=== PATIENT | female | born 1970 | race Hispanic/Latino ===

== ENCOUNTER 2016-07-04 23:00 | Emergency (ER) | payer OTHER ==
[2016-07-04 23:29] VITALS: O2SAT 100
--- NOTE | 2016-07-04 23:52 | ED.PDOC ---
History of Present Illness - General Chief Complaint: Behavioral / Psych Stated Complaint: increased anxiety Time Seen by Provider: 07/04/16 23:12 Source: patient, RN notes reviewed, Vital Signs reviewed, family Exam Limitations: no limitations - History of Present Illness Initial Comments: Patient is a 46 y/o female with known psychiatric problems. She complains of anxiety, nausea, vomiting, chest tightness, and abdominal pain x 30 minutes. Patient informed the nurse (but not myself) that she has been out of her medications for 3 days and won't be able to get it until tomorrow. She has vomited twice today. Timing/Duration: this evening Severity: severe Episode Description: Anxious, nausea, vomiting, chest tightness Allergies/Adverse Reactions: Allergies Penicillins Allergy (Severe, Verified 07/04/16 23:12) Anaphylaxis Home Medications: Ambulatory Orders Clonazepam [Klonopin] 2 mg PO BID 12/01/14 Lurasidone HCl [Latuda] 120 mg PO DAILY 12/01/14 Trazodone HCl 300 mg PO BEDTIME 12/01/14 Venlafaxine Xr [Effexor Xr] 1 each PO DAILY 12/01/14 Clonazepam [Klonopin] 2 mg PO BID #1 tab 02/15/15 Insulin Shot 0.6 unit SC DAILY 02/15/15 Sulfa/Trimeth 800/160 (Ds) Tab [Bactrim DS Tab] 1 ea PO BID #14 tab 09/10/15 Review of Systems - Review of Systems Constitutional: States: weakness EENTM: States: no symptoms reported Respiratory: States: short of breath Cardiology: States: chest pain Gastrointestinal/Abdominal: States: nausea, vomiting Genitourinary: States: no symptoms reported Musculoskeletal: States: muscle pain Skin: States: rash Neurological: States: anxiety, emotional problems Endocrine: States: no symptoms reported Hematologic/Lymphatic: States: no symptoms reported All other Systems: Reviewed and Negative Past Medical History (General) - Patient Medical History Hx Seizures: Yes Hx Stroke: No Hx Dementia: No Hx Asthma: No Hx of COPD: No Hx Cardiac Disorders: No Hx Congestive Heart Failure: No Hx Pacemaker: No Hx Hypertension: No Hx Thyroid Disease: No Hx Diabetes: No Hx Gastroesophageal Reflux: No Hx Renal Disease: Yes Hx Cancer: Yes - LIVER Hx of HIV: No Hx Hepatitis C: Yes Hx MRSA: No Surgical History: gastric bypass, Hysterectomy - Vaccination History Hx Tetanus, Diphtheria Vaccination: No Hx Influenza Vaccination: No Hx Pneumococcal Vaccination: No Immunizations Up to Date: No - Social History Hx Tobacco Use: No Hx Chewing Tobacco Use: No Hx Alcohol Use: No Hx Substance Use: No Hx Substance Use Treatment: No Hx Depression: Yes Hx Physical Abuse: No Hx Emotional Abuse: No Hx Suspected Abuse: No - Female History Patient : No Family Medical History - Family History Mother Family History: Unknown Physical Exam - Physical Exam General Appearance: Agitated, Alert, Anxious, Obvious distress, Unkempt Eyes, Ears, Nose, Throat Exam: normal ENT inspection Respiratory: lungs clear, normal breath sounds, no respiratory distress, no accessory muscle use Cardiovascular/Chest: regular rate, rhythm, no edema, no gallop, no murmur Gastrointestinal/Abdominal: normal bowel sounds, non tender, soft, no organomegaly Extremities Exam: non-tender, no edema Neurological: alert, oriented x 3, agitated, anxious Appearance: no memory impairment, disheveled, impaired insight Behavior/Eye Contact/Speech: cooperative, good eye contact, normal speech Thoughts/Hallucinations: normal thought pattern, no apparent hallucination Skin Exam: rash - hyperpigmented macular lesions on face and chest Progress - Progress Progress: 07/05/16 01:16 Patient's lipase was mildly elevated which could be a result of numerous things , including her vomiting or drug use. Patient's symptoms resolved after giving her a regular dose of her Klonopin 2 mg PO. - Results/Orders Results/Orders: 07/04/16 07/05/16 23:15 00:30 Temperature 98.2 F Pulse Rate [ 66 59 L Left] Respiratory 24 24 Rate Blood Pressure 180/90 161/84 [Left Arm] O2 Sat by Pulse 100 100 Oximetry 07/04/16 23:38 Chest,2 Views [RAD] Stat Laboratory Results WBC 11.6 K/mm3 (4.8-10.8) H 07/05/16 00:33 RBC 5.02 M/mm3 (4.20-5.40) 07/05/16 00:33 Hgb 11.0 gm/dL (12.0-16.0) L 07/05/16 00:33 Hct 35.7 % (36.0-47.0) L 07/05/16 00:33 MCV 71.1 fl (81.0-99.0) L 07/05/16 00:33 MCH 21.9 pg (27.0-31.0) L 07/05/16 00:33 MCHC 30.9 g/dL (33.0-37.0) L 07/05/16 00:33 RDW 16.9 % (11.5-14.5) H 07/05/16 00:33 Plt Count 286 K/mm3 (130-400) 07/05/16 00:33 MPV 9.2 fl (7.40-10.4) 07/05/16 00:33 Absolute Neuts (auto) 6.90 K/uL (1.8-6.8) H 07/05/16 00:33 Absolute Lymphs (auto) 3.60 K/uL (1.0-3.4) H 07/05/16 00:33 Absolute Monos (auto) 0.70 K/uL (0.2-0.8) 07/05/16 00:33 Absolute Eos (auto) 0.30 K/uL (0.0-0.4) 07/05/16 00:33 Absolute Basos (auto) 0.10 K/uL (0.0-0.1) 07/05/16 00:33 Neutrophils % 59.6 % (42.0-78.0) 07/05/16 00: Lymphocytes % 31.2 % (20.0-50.0) 07/05/16 00: Monocytes % 5.7 % (2.0-9.0) 07/05/16 00: Eosinophils % 2.6 % (1.0-5.0) 07/05/16 00: Basophils % 0.9 % (0.0-2.0) 07/05/16 00:33 Sodium 138 mmol/L (135-145) 07/05/16 00:33 Potassium 4.1 mmol/L (3.6-5.0) 07/05/16 00:33 Chloride 107 mmol/L (101-111) 07/05/16 00:33 Carbon Dioxide 24 mmol/L (21-31) 07/05/16 00:33 Anion Gap 11.1 (12-18) L 07/05/16 00:33 BUN 15 mg/dL (7-18) 07/05/16 00:33 Creatinine 0.49 mg/dL (0.6-1.3) L 07/05/16 00:33 BUN/Creatinine Ratio 30.6 (10-20) H 07/05/16 00:33 Random Glucose 123 mg/dL (70-105) H 07/05/16 00:33 Serum Osmolality 277.9 mOsm/L (275-295) 07/05/16 00:33 Calcium 8.5 mg/dL (8.4-10.2) 07/05/16 00:33 Total Bilirubin 0.3 mg/dL (0.2-1.0) 07/04/16 23:38 Direct Bilirubin 0.1 mg/dL (0-0.2) 07/04/16 23:38 Indirect Bilirubin 0.2 mg/dL (0.2-0.8) 07/04/16 23:38 AST 21 IU/L (10-42) 07/04/16 23:38 ALT 14 IU/L (10-60) 07/04/16 23:38 Alkaline Phosphatase 133 IU/L (42-121) H 07/04/16 23:38 Serum Total Protein 7.2 gm/dL (6.4-8.2) 07/04/16 23:38 Albumin 3.8 g/dl (3.2-5.5) 07/04/16 23:38 Lipase 90 U/L (22-51) H 07/04/16 23:38 Urine Color Yellow (Yellow) 07/04/16 23:43 Urine Appearance Clear (Clear) 07/04/16 23:43 Urine pH 7.5 (4.5-7.8) 07/04/16 23:43 Ur Specific [place] 1.015 (1.005-1.030) 07/04/16 23:43 Urine Protein Negative mg/dL 07/04/16 23:43 Urine Glucose (UA) Negative mg/dL (Negative) 07/04/16 23:43 Urine Ketones Negative mg/dL (NEGATIVE) 07/04/16 23:43 Urine Blood Negative (Negative) 07/04/16 23:43 Urine Nitrite Negative 07/04/16 23:43 Urine Bilirubin Negative (NEGATIVE) 07/04/16 23:43 Urine Urobilinogen 0.2 mg/dL (0.2-1.0) 07/04/16 23:43 Ur Leukocyte Esterase Negative (Negative) 07/04/16 23:43 Urine RBC 1-3 /hpf 07/04/16 23:43 Urine WBC 0-1 /hpf 07/04/16 23:43 Ur Epithelial Cells 0-1 /hpf 07/04/16 23:43 Urine Bacteria 0 07/04/16 23:43 Urine Opiates Screen Positive ng/mL (2000) H 07/04/16 23:38 Urine Barbiturates Negative ng/mL (200) 07/04/16 23:38 Ur Phencyclidine Scrn Negative ng/mL (25) 07/04/16 23:38 U Amphetamin/Meth Scrn Negative ng/mL (1000) 07/04/16 23:38 U Benzodiazepines Scrn Negative ng/mL (200) 07/04/16 23:38 U Cocaine Metab Screen Negative ng/mL (300) 07/04/16 23:38 U Cannabinoids Screen Positive ng/mL (50) H 07/04/16 23:38 - EKG/XRAY/CT XRAY: chest Xray Comments: No acute process - Additional EKG/XRAY/Consults XRAY #2: abdomen Comments: No acute process Departure - Departure Clinical Impression: Elevated lipase, Drug use Withdrawal from benzodiazepine Qualifiers: Complication of substance-induced condition: uncomplicated Qualifier Code: ( F13.230) Sedative, hypnotic or anxiolytic dependence with withdrawal, uncomplicated Time of Disposition: :24 Disposition: Discharge to Home or Self Care Condition: Good Departure Forms: ED Discharge - Pt. Copy, Patient Portal Self Enrollment Instructions: Drug Withdrawal, DI for Drug Withdrawal Diet: resume usual diet Referrals: [Primary Care Provider] - 1-2 Weeks Home Medications: Ambulatory Orders Clonazepam [Klonopin] 2 mg PO BID 12/01/14 Lurasidone HCl [Latuda] 120 mg PO DAILY 12/01/14 Trazodone HCl 300 mg PO BEDTIME 12/01/14 Venlafaxine Xr [Effexor Xr] 1 each PO DAILY 12/01/14 Clonazepam [Klonopin] 2 mg PO BID #1 tab 02/15/15 Insulin Shot 0.6 unit SC DAILY 02/15/15 Sulfa/Trimeth 800/160 (Ds) Tab [Bactrim DS Tab] 1 ea PO BID #14 tab 09/10/15
--- NOTE | 2016-07-05 00:18 | RAD ---
EXAM DESCRIPTION: Abdomen Flat Upright CLINICAL HISTORY: 46 years Female ,chest pressure, nausea and vomiting, mid right upper abdomen pain COMPARISON: None. TECHNIQUE: Two views of the abdomen. FINDINGS: The visualized lung bases appear clear. No free air is identified beneath the hemidiaphragms. No dilated loops of bowel to suggest obstruction. The ascending colon and hepatic flexure appear distended with stool. Moderate amount of stool in the descending colon. Changes from constipation not excluded. Phleboliths in the pelvis. Degenerative changes in the spine. Cholecystectomy clips in the right upper abdomen. Suture material is visualized in the region of the stomach. IMPRESSION: Stool in the colon which could be from constipation. No definite bowel obstruction. Electronically signed by: Jim Cardenas MD 07/05/2016 12:17 AM [employer] OFFICER
[2016-07-05 01:42] VITALS: BP 136/83; TEMP 98.7
--- NOTE | 2016-07-11 14:09 | RAD ---
EXAM DESCRIPTION: Chest,2 Views CLINICAL HISTORY: chest pressure COMPARISON: April 12, 2016 FINDINGS: Cardiac silhouette is within normal limits. There is no focal parenchymal or pleural disease. There is no acute osseous process visualized. IMPRESSION: No evidence of acute cardiopulmonary disease. Electronically signed by: Cliff Velazquez MD 07/05/2016 12:13 AM SURGICAL SCRUB TECHNICIAN
== END 2016-07-05 01:41 | disposition home or self-care (01) ==
LOC: ER 23:00
DX: F13.230 Sedative, hypnotic or anxiolytic dependence with withdrawal, uncomplicated (principal); R74.8 Abnormal levels of other serum enzymes; R11.2 Nausea with vomiting, unspecified; R07.89 Other chest pain; Z79.899 Other long term (current) drug therapy; Z79.4 Long term (current) use of insulin; Z88.0 Allergy status to penicillin; Z85.05 Personal history of malignant neoplasm of liver; Z98.84 Bariatric surgery status
CPT/HCPCS: 71020; 74010; 80048; 80076; 81001; 83690; 85025; G0479

== ENCOUNTER → 2016-09-09 | Outpatient (CLI) | payer OTHER | END | disposition home or self-care (01) | LOC: YCFC.O 15:07 | PROVIDERS: ATTEND Nurse Practitioner Family | DX: B18.2 Chronic viral hepatitis C (principal); R74.8 Abnormal levels of other serum enzymes; E11.65 Type 2 diabetes mellitus with hyperglycemia; I10 Essential (primary) hypertension; Z13.29 Encounter for screening for other suspected endocrine disorder ==

== ENCOUNTER 2018-03-03 13:14 | Emergency (ER) | payer OTHER ==
[2018-03-03 13:27] VITALS: TEMP 97.6
--- NOTE | 2018-03-03 14:07 | ED.PDOC ---
History of Present Illness - General Chief Complaint: Neuro Symptoms/Deficits Stated Complaint: seizure Time Seen by Provider: 03/03/18 13:27 Source: patient, family Exam Limitations: no limitations - History of Present Illness Initial Comments: PT HAD A WITNESSED GENERILIZED TONIC-CLONIC SEIZURE TODAY. SHE WAS SEATED IN CHAIR AND STEADIED HER SO SHE DID NOT HIT THE GROUND AND REMAINED IN THE CHAIR. POS LOC. NO HEAD OR OTHER TRAUMA. H/O SZ, TAKES TRILEPTAL BID BUT DIDN'T TAKE ANY OF HER MEDS THIS AM. SAW PCP LAST WEEK; NO SZ MED CHANGES. PT REPORTS INCR STRESS TODAY, SHE HAD TO PRESENT TO [facility] FOR SENTENCING. HAS DM AND ACCUCHECK 243. Severity: moderate Improving Factors: nothing Worsening Factors: nothing Associated Symptoms: loss of consciousness, seizures Allergies/Adverse Reactions: Allergies Penicillins Allergy (Severe, Verified 07/04/16 23:12) Anaphylaxis Home Medications: Ambulatory Orders Lurasidone HCl [Latuda] 160 mg PO BEDTIME 12/01/14 Venlafaxine Xr [Effexor Xr] 1 each PO DAILY 12/01/14 Dicyclomine HCl 20 mg PO TID 03/03/18 Hydroxyzine HCl 25 mg PO TID 03/03/18 Lisinopril 20 mg PO DAILY 03/03/18 Metformin HCl 1,000 mg PO DAILY 03/03/18 Omeprazole 20 mg PO DAILY 03/03/18 Oxcarbazepine [Trileptal] 600 mg PO BID 03/03/18 Triamterene & Hydrochlorothiaz [Triamterene/Hydrochloroth 37.5-25 mg] 1 tab PO DAILY 03/03/18 Review of Systems - Review of Systems Constitutional: States: malaise. Denies: chills, fever EENTM: States: no symptoms reported Respiratory: States: no symptoms reported Cardiology: States: no symptoms reported Gastrointestinal/Abdominal: States: no symptoms reported Genitourinary: States: no symptoms reported Musculoskeletal: States: no symptoms reported. Denies: neck pain Skin: States: no symptoms reported Neurological: States: pre-existing deficit, other - GENERALIZED FATIGUE, C/W POST-ICTAL STATE. . Denies: headache Endocrine: States: no symptoms reported Hematologic/Lymphatic: States: no symptoms reported All other Systems: Reviewed and Negative Past Medical History (General) - Patient Medical History Hx Seizures: Yes Hx Stroke: No Hx Dementia: No Hx Asthma: No Hx of COPD: No Hx Cardiac Disorders: No Hx Congestive Heart Failure: No Hx Pacemaker: No Hx Hypertension: Yes Hx Thyroid Disease: No Hx Diabetes: No Hx Gastroesophageal Reflux: No Hx Renal Disease: Yes Hx Cancer: Yes - LIVER Hx of HIV: No Hx Hepatitis C: Yes Hx MRSA: No Surgical History: appendectomy, cholecystectomy, Hysterectomy - Vaccination History Hx Tetanus, Diphtheria Vaccination: No Hx Influenza Vaccination: No Hx Pneumococcal Vaccination: No - Social History Hx Tobacco Use: Yes Hx Chewing Tobacco Use: No Hx Alcohol Use: No Hx Substance Use: No Hx Substance Use Treatment: No Hx Depression: Yes Hx Physical Abuse: No Hx Emotional Abuse: No Hx Suspected Abuse: No - Female History Patient : No Family Medical History - Family History Mother Family History: Unknown Physical Exam - Physical Exam General Appearance: Alert, No apparent distress Eye Exam: bilateral normal ENT Exam: normal ENT inspection, hearing grossly normal, TMs normal, pharynx normal Neck: non-tender, full range of motion, supple, normal inspection, trachea midline Respiratory: lungs clear, normal breath sounds, no respiratory distress Cardiovascular/Chest: regular rate, rhythm, no JVD, no murmur Peripheral Pulses: radial,right: 2+, radial,left: 2+ Gastrointestinal/Abdominal: normal bowel sounds, non tender, soft Back Exam: no CVA tenderness Extremities Exam: non-tender, normal range of motion, no evidence of injury Mental Status: alert, 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 NO FACIAL ASSYMETRY. Coordination/Gait: normal finger to nose, normal gait Motor/Sensory: no motor deficit, no sensory deficit, no pronator drift Skin Exam: normal color, warm/dry Progress - Progress Progress: 03/03/18 16:29 CHRONIC SZ HX. W/U NEG FOR NEW ACUTE CAUSE, OTHER THAN SHE IS ON BID TRILEPTAL AND SHE DIDN'T TAKE IT THIS AM. 03/03/18 16:30 CXR NEG. EKG NSR. CBC - VERY MILD MICROCYTIC, MICROCHROMIC ANEMIA. UA - NO UTI. TRACE BLOOD, GLUCOSE. Departure - Departure Clinical Impression: Seizure, Microcytic hypochromic anemia, Asymptomatic microscopic hematuria, Glucosuria Disposition: Discharge to Home or Self Care Condition: Good Departure Forms: ED Discharge - Pt. Copy, Patient Portal Self Enrollment Instructions: Epilepsy in Adults Diet: resume usual diet Activity: increase activity as tolerated Referrals: Anne-Marie Thibodeaux NP [Primary Care Provider] - 1 Week Home Medications: Ambulatory Orders Lurasidone HCl [Latuda] 160 mg PO BEDTIME 12/01/14 Venlafaxine Xr [Effexor Xr] 1 each PO DAILY 12/01/14 Dicyclomine HCl 20 mg PO TID 03/03/18 Hydroxyzine HCl 25 mg PO TID 03/03/18 Lisinopril 20 mg PO DAILY 03/03/18 Metformin HCl 1,000 mg PO DAILY 03/03/18 Omeprazole 20 mg PO DAILY 03/03/18 Oxcarbazepine [Trileptal] 600 mg PO BID 03/03/18 Triamterene & Hydrochlorothiaz [Triamterene/Hydrochloroth 37.5-25 mg] 1 tab PO DAILY 03/03/18 Additional Instructions: Please be sure to take your Trileptal anti-seizure medicine and all of your other medications every day.
--- NOTE | 2018-03-03 14:57 | RAD ---
Study: Single Frontal View of the Chest. Indication:SEIZURE Comparison: July 04, 2016 Impression: Heart size normal. Lungs clear. No acute osseous abnormality. Electronically signed by: Jose Alfredo Macias MD 03/03/2018 2:56 PM CDT
[2018-03-03 16:40] VITALS: BP 104/60; O2SAT 97
== END 2018-03-03 16:40 | disposition home or self-care (01) ==
LOC: ER 13:14
DX: R56.9 Unspecified convulsions (principal); D50.8 Other iron deficiency anemias; R31.29 Other microscopic hematuria; R81 Glycosuria; E11.22 Type 2 diabetes mellitus with diabetic chronic kidney disease; I12.9 Hypertensive chronic kidney disease with stage 1 through stage 4 chronic kidney disease, or unspecified chronic kidney disease; N18.9 Chronic kidney disease, unspecified; F32.9 Major depressive disorder, single episode, unspecified; Z86.19 Personal history of other infectious and parasitic diseases; Z85.05 Personal history of malignant neoplasm of liver; Z87.891 Personal history of nicotine dependence; Z79.899 Other long term (current) drug therapy

== ENCOUNTER → 2018-03-24 | Outpatient (CLI) | payer OTHER ==
--- NOTE | 2018-03-24 09:27 | RAD ---
EXAM DESCRIPTION: Chest,2 Views CLINICAL HISTORY: 47 years Female, TUBERCULOSIS SCREENING COMPARISON: 03/03/2018 IMPRESSION: Heart size and pulmonary vascularity are within normal limits. Mild calcific plaque in the thoracic aorta. There is no airspace consolidation, pleural effusion, or pneumothorax. No acute osseous abnormality. Electronically signed by: Antwan Pope MD 03/24/2018 9:25 AM CDT
== END ==
LOC: YCFC.O 08:55
PROVIDERS: ATTEND Family Medicine
DX: Z11.1 Encounter for screening for respiratory tuberculosis (principal)

== ENCOUNTER → 2019-07-28 | Outpatient (CLI) | payer OTHER ==
--- NOTE | 2019-07-28 15:31 | RAD ---
EXAM DESCRIPTION: Chest,1 View CLINICAL HISTORY: Rib pain COMPARISON: 24 March 2018 TECHNIQUE: Chest 1 view FINDINGS: The lungs are clear. There is no infiltrate or effusion. The heart is normal size. IMPRESSION: Normal one view chest Electronically signed by: Christos Martinez MD 07/28/2019 3:29 PM [facility]
--- NOTE | 2019-07-28 15:33 | RAD ---
EXAM DESCRIPTION: Ribs,Left 3 Views CLINICAL HISTORY: Rib pain COMPARISON: None. TECHNIQUE: 3 views FINDINGS: No pneumothorax is detected. No rib fracturing is detected. Surgical clips are seen in the right upper quadrant. IMPRESSION: No rib fracturing is detected. Electronically signed by: Christos Martinez MD 07/28/2019 3:31 PM [facility]
== END ==
LOC: RAD 14:56
PROVIDERS: ATTEND Nurse Practitioner
DX: R07.81 Pleurodynia (principal)

== ENCOUNTER 2019-09-28 22:36 | Emergency (ER) | payer OTHER ==
[2019-09-28] MEDS ORDERED: SODIUM CHLORIDE 0.9% (FLUSH) 10 ML SYG IV PRN (23:16)
--- NOTE | 2019-09-28 23:47 | CT ---
EXAM DESCRIPTION: Head CLINICAL HISTORY: 49 years Female Seizure, headache. COMPARISON: None TECHNIQUE: Images were obtained in axial, sagittal, and coronal planes. This exam was performed according to our departmental dose-optimization program which includes use of Automated Exposure Control, adjustment of the mA and/or kV according to patient size and/or use of iterative reconstruction technique. FINDINGS: Ventricular system appears normal. No abnormal areas of increased or decreased attenuation are seen involving the brain parenchyma. No extra-axial fluid collections noted. No evidence for skull fracture. Unremarkable paranasal sinuses. Symmetric aeration mastoid air cells bilaterally. IMPRESSION: No acute intracranial abnormality. No evidence for hemorrhage, mass lesion, or large acute infarction. Electronically signed by: Alana Darling MD 09/28/2019 11:46 PM CDT
--- NOTE | 2019-09-29 01:28 | ED.PDOC ---
History of Present Illness - General Chief Complaint: Neuro Symptoms/Deficits Stated Complaint: seizure and headache Time Seen by Provider: 09/28/19 23:16 Source: patient, RN notes reviewed, Vital Signs reviewed, family - Daughter Exam Limitations: no limitations - History of Present Illness Initial Comments: Patient is a 49-year-old female who presents with complaints of headache and not feeling well after having a seizure today at 11 AM. Patient has a known seizure disorder. I have taken care of patient in the past, and at that time she was a daily heavy drinker. Patient states her last drink was 2 weeks ago. Patient's headache is throbbing in nature. It is severe in intensity. Patient also complains of shakiness. The headache does not radiate. Patient has some mild photophobia. She has no meningismus. Headache is worse with movement or bending over. Better in a dark room resting quietly. Timing/Duration: other - Started approximately 10 hours prior to arrival Severity: moderate Improving Factors: rest Worsening Factors: movement Associated Symptoms: fatigue, nausea/vomiting - Nausea only, weakness Allergies/Adverse Reactions: Allergies Penicillins Allergy (Severe, Verified 07/04/16 23:12) Anaphylaxis Home Medications: Ambulatory Orders Lurasidone HCl [Latuda] 160 mg PO BEDTIME 12/01/14 Venlafaxine Xr [Effexor Xr] 1 each PO DAILY 12/01/14 Dicyclomine HCl [Dicyclomine Hydrochloride] 20 mg PO TID 03/03/18 Hydroxyzine HCl 25 mg PO TID 03/03/18 Lisinopril 20 mg PO DAILY 03/03/18 Metformin HCl [Metformin Hydrochloride] 1,000 mg PO DAILY 03/03/18 Omeprazole 20 mg PO DAILY 03/03/18 Oxcarbazepine [Trileptal] 600 mg PO BID 03/03/18 Triamterene & Hydrochlorothiaz [Triamterene/Hydrochloroth 37.5-25 mg] 1 tab PO DAILY 03/03/18 Review of Systems - Review of Systems Constitutional: States: see HPI, weakness. Denies: chills, fever, malaise EENTM: States: see HPI, eye pain - Positive photophobia. Denies: double vision Respiratory: States: no symptoms reported. Denies: cough, short of breath, stridor, wheezing Cardiology: States: no symptoms reported. Denies: chest pain, palpitations, syncope Gastrointestinal/Abdominal: States: see HPI, nausea. Denies: abdominal pain, vomiting Genitourinary: States: no symptoms reported Musculoskeletal: States: no symptoms reported. Denies: back pain, neck pain Skin: States: no symptoms reported. Denies: change in color, rash Neurological: States: see HPI, anxiety, headache, weakness Endocrine: States: no symptoms reported Hematologic/Lymphatic: States: no symptoms reported All other Systems: No Change from Baseline Past Medical History (General) - Patient Medical History Hx Seizures: Yes Hx Stroke: No Hx Dementia: No Hx Asthma: No Hx of COPD: No Hx Cardiac Disorders: No Hx Congestive Heart Failure: No Hx Pacemaker: No Hx Hypertension: Yes Hx Thyroid Disease: No Hx Diabetes: Yes Hx Gastroesophageal Reflux: No Hx Renal Disease: No Hx Cancer: No Hx of HIV: No Hx Hepatitis C: No Hx MRSA: No Surgical History: appendectomy, cholecystectomy, gastric bypass, Hysterectomy - Vaccination History Hx Tetanus, Diphtheria Vaccination: Yes Hx Influenza Vaccination: No Hx Pneumococcal Vaccination: No - Social History Hx Tobacco Use: Yes Hx Chewing Tobacco Use: No Hx Alcohol Use: Yes Hx Substance Use: Yes Hx Substance Use Treatment: Yes Hx Depression: No Feels Threatened In Home Enviroment: No Feels Threatened In a Relationship: No Hx Physical Abuse: No Hx Emotional Abuse: No Hx Suspected Abuse: No - Female History Patient is a Female of Child Bearing Age (10 -59 yrs old): No Patient : No Family Medical History - Family History Mother Family History: Unknown Physical Exam - Physical Exam General Appearance: Agitated, Alert, Anxious, Obvious distress, Unkempt, Well Developed, Well Hydrated, Well Nourished Eye Exam: bilateral other - External ocular muscles intact. Full range of brent on. Positive photophobia, mild ENT Exam: normal ENT inspection, hearing grossly normal, pharynx normal Neck: non-tender, full range of motion, supple, normal inspection, trachea midline Respiratory: chest non-tender, lungs clear, normal breath sounds, no respiratory distress, no accessory muscle use Cardiovascular/Chest: normal peripheral pulses, regular rate, rhythm, no edema, no gallop, no murmur Peripheral Pulses: radial,right: 2+, radial,left: 2+ Gastrointestinal/Abdominal: normal bowel sounds, non tender, soft Back Exam: normal inspection, no CVA tenderness, no vertebral tenderness Extremities Exam: non-tender, normal range of motion, no evidence of injury Mental Status: alert, oriented x 3, 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 09/29/19 01:33 Patient symptoms completely resolved after 2 mg of Ativan IM. Patient says her headache has resolved and her shakiness is gone. I suspect patient is got some alcohol withdrawal syndrome possibly triggering a seizure. Plan on discharge home with her daughter. She voices understanding and agreement with the plan of care. Jim Jeffery M.D. #[id number] - Results/Orders Results/Orders: EXAM DESCRIPTION: Head CLINICAL HISTORY: 49 years Female Seizure, headache. COMPARISON: None TECHNIQUE: Images were obtained in axial, sagittal, and coronal planes. This exam was performed according to our departmental dose- optimization program which includes use of Automated Exposure Control, ad justment of the mA and/or kV according to patient size and/or use of iterative reconstruction technique. FINDINGS: Ventricular system appears normal. No abnormal areas of increased or decreased attenuation are seen involving the brain parenchyma. No extra-axial fluid collections noted. No evidence for skull fracture. Unremarkable paranasal sinuses. Symmetric aeration mastoid air cells bilaterally. IMPRESSION: No acute intracranial abnormality. No evidence for hemorrhage, mass lesion, or large acute infarction. Electronically signed by: Alana Darling MD 09/28/2019 11:46 PM CDT 09/28/19 23:16 IV Care:Saline Lock per Protoc QSHIFT Sodium Chloride 0.9% (Flush) [Saline Flush Syringe] 10 ml IV PRN PRN URINALYSIS Stat Laboratory Results - last 24 hr 09/28/19 09/28/19 09/28/19 23:56 23:56 23:56 WBC 10.6 RBC 4.52 Hgb 13.2 Hct 39.2 MCV 86.8 MCH 29.1 MCHC 33.6 RDW 13.3 Plt Count 324 MPV 7.5 Absolute Neuts (auto) 6.60 Absolute Lymphs (auto) 2.60 Absolute Monos (auto) 0.90 H Absolute Eos (auto) 0.40 Absolute Basos (auto) 0.20 H Neutrophils % 62.0 Lymphocytes % 24.3 Monocytes % 8.6 Eosinophils % 3.6 Basophils % 1.5 Sodium 136 Potassium 3.9 Chloride 104 Carbon Dioxide 24 Anion Gap 11.9 L BUN 21 H Creatinine 1.37 H BUN/Creatinine Ratio 15.3 Random Glucose 146 H Serum Osmolality 277.6 Calcium 9.0 Total Bilirubin 0.4 Direct Bilirubin 0.1 Indirect Bilirubin 0.3 AST 19 ALT 17 Alkaline Phosphatase 84 Serum Total Protein 7.1 Albumin 4.1 Lipase 37 Vital Signs 09/28/19 09/29/19 09/29/19 23:02 00:00 01:00 Temperature 97.3 F L Pulse Rate [ 92 H 80 77 Pulse Ox] Respiratory 20 14 14 Rate Blood Pressure 117/60 92/66 103/56 [Left Arm] O2 Sat by Pulse 97 96 98 Oximetry Departure - Departure Clinical Impression: Seizure, Anxiety Withdrawal syndrome Qualifiers: Substance type: sedative, hypnotic or anxiolytic Qualified Code(s): F13.239 - Sedative, hypnotic or anxiolytic dependence with withdrawal, unspecified Time of Disposition: 01:35 Disposition: Discharge to Home or Self Care Condition: Fair Departure Forms: ED Discharge - Pt. Copy, Patient Portal Self Enrollment Instructions: Migraines (DC), Anxiety, Adult (DC), Seizures, Adult (DC) Diet: resume usual diet Activity: increase activity as tolerated Referrals: Zeyad Clark [Primary Care Provider] - 1-5 Days Home Medications: Ambulatory Orders Lurasidone HCl [Latuda] 160 mg PO BEDTIME 12/01/14 Venlafaxine Xr [Effexor Xr] 1 each PO DAILY 12/01/14 Dicyclomine HCl [Dicyclomine Hydrochloride] 20 mg PO TID 03/03/18 Hydroxyzine HCl 25 mg PO TID 03/03/18 Lisinopril 20 mg PO DAILY 03/03/18 Metformin HCl [Metformin Hydrochloride] 1,000 mg PO DAILY 03/03/18 Omeprazole 20 mg PO DAILY 03/03/18 Oxcarbazepine [Trileptal] 600 mg PO BID 03/03/18 Triamterene & Hydrochlorothiaz [Triamterene/Hydrochloroth 37.5-25 mg] 1 tab PO DAILY 03/03/18
[2019-09-29 02:14] VITALS: BP 96/54; TEMP 97.8; O2SAT 96
== END 2019-09-29 01:45 | disposition home or self-care (01) ==
LOC: ER 22:36
DX: G40.909 Epilepsy, unspecified, not intractable, without status epilepticus (principal); F13.239 Sedative, hypnotic or anxiolytic dependence with withdrawal, unspecified; F41.9 Anxiety disorder, unspecified; I10 Essential (primary) hypertension; E11.9 Type 2 diabetes mellitus without complications; Z79.899 Other long term (current) drug therapy; F17.200 Nicotine dependence, unspecified, uncomplicated
CPT/HCPCS: 70450; 80048; 80076; 83690; 85025; J2060